=== PATIENT | female | born 1965 | race American Indian/Alaskan Native ===

== ENCOUNTER 2022-01-27 15:29 | Emergency (ER) | payer MEDICAID ==
[2022-01-27 15:39] VITALS: BP 105/59; PULSE 71
[2022-01-27] MEDS ORDERED: Bupivacaine 0.5%/EPINEPHrine 1:200,000 1.8 ML Cartridge INJECT ONE (16:40)
== END 2022-01-27 17:52 | disposition home or self-care (01) ==
LOC: JP.ED 15:29
DX: K04.7 Periapical abscess without sinus (principal); F17.210 Nicotine dependence, cigarettes, uncomplicated
CPT/HCPCS: 64400; 99282; J3490

== ENCOUNTER 2023-07-26 21:40 | Emergency (ER) | payer SELFPAY ==
[2023-07-26 22:14] VITALS: BP 121/79; PULSE 88
[2023-07-26] MEDS: Doxycycline 100 MG Cap PO ONE (22:45)
== END 2023-07-26 22:30 | disposition home or self-care (01) ==
LOC: JP.ED 21:40
DX: S30.861A Insect bite (nonvenomous) of abdominal wall, initial encounter (principal); L03.311 Cellulitis of abdominal wall; Z91.89 Other specified personal risk factors, not elsewhere classified; W57.XXXA Bitten or stung by nonvenomous insect and other nonvenomous arthropods, initial encounter
CPT/HCPCS: 99282; A9270